=== PATIENT | male | born 1945 | race Caucasian/White ===

== ENCOUNTER → 2017-02-05 | Outpatient (CLI) | payer MEDICARE | END | disposition home or self-care (01) | LOC: PCVCIMAG 07:56 | PROVIDERS: ATTEND Internal Medicine Cardiovascular Disease | DX: E78.00 Pure hypercholesterolemia, unspecified (principal); I10 Essential (primary) hypertension; I25.10 Atherosclerotic heart disease of native coronary artery without angina pectoris; Z95.1 Presence of aortocoronary bypass graft | CPT/HCPCS: 78452; 93017; A9500; G0463 ==

== ENCOUNTER → 2017-07-30 | Outpatient (CLI) | payer MEDICARE | END | disposition home or self-care (01) | LOC: PCVCCLINIC 09:00 | PROVIDERS: ATTEND Internal Medicine Cardiovascular Disease | DX: I10 Essential (primary) hypertension (principal); E78.00 Pure hypercholesterolemia, unspecified | CPT/HCPCS: 36415; 80061 ==

== ENCOUNTER → 2017-09-16 | Outpatient (CLI) | payer MEDICARE | END | disposition home or self-care (01) | LOC: PCVCCLINIC 09:09 | DX: I25.10 Atherosclerotic heart disease of native coronary artery without angina pectoris (principal); I10 Essential (primary) hypertension; E78.00 Pure hypercholesterolemia, unspecified; I05.9 Rheumatic mitral valve disease, unspecified; R94.31 Abnormal electrocardiogram [ECG] [EKG]; R00.1 Bradycardia, unspecified; I45.10 Unspecified right bundle-branch block; Z79.82 Long term (current) use of aspirin; Z79.899 Other long term (current) drug therapy; Z87.891 Personal history of nicotine dependence | CPT/HCPCS: 93005; G0463 ==

== ENCOUNTER → 2018-01-14 | Outpatient (CLI) | payer MEDICARE | END | disposition home or self-care (01) | LOC: PCVCCLINIC 13:42 | DX: I11.0 Hypertensive heart disease with heart failure (principal); I05.9 Rheumatic mitral valve disease, unspecified; I25.10 Atherosclerotic heart disease of native coronary artery without angina pectoris; R94.31 Abnormal electrocardiogram [ECG] [EKG]; Z87.891 Personal history of nicotine dependence; Z79.82 Long term (current) use of aspirin | CPT/HCPCS: 93005; G0463 ==

== ENCOUNTER → 2018-07-21 | Outpatient (CLI) | payer MEDICARE ==
--- NOTE | 2018-07-21 10:15 | PCVCIMAG ---
APPROVED REPORT Study performed: 07/21/2018 09:47:55 EXAM: Comprehensive 2D, Doppler, and color-flow Echocardiogram Patient Location: Echo lab Room #: 3Status: routine BSA: 2.05 HR: 64 bpmBP: 132/80 mmHg Rhythm: RBBB Other Information Study Quality: Adequate Risk Factors: Cardiac Risk Factors: HTN, Hyperlipidemia Indications Aortic Valve Disease Mitral Valve Disease CAD Hypertension/HDD S/P CABG 2D Dimensions IVSd: 7.29 (7-11mm)LVOT Diam: 21.45 (18-24mm) LVDd: 60.16 mm PWd: 8.29 (7-11mm)Ascending Ao: 39.09 (22-36mm) LVDs: 40.20 (25-40mm) Left Atrium: 43.85 (27-40mm) Aortic Root: 30.79 mm LV Single Plane 4CH: 48.11 % LV Single Plane 2CH: 53.12 % Biplane EF: 49.4 % Volumes Left Atrial Volume (Systole) Single Plane 4CH: 60.70 mLSingle Plane 2CH: 66.88 mL Biplane LA Volume: 66.00 mLLA ESV Index: 32.00 mL/m2 Aortic Valve AoV Peak Justino.: 1.30 m/s AO Peak Gr.: 6.96 mmHgLVOT Max P.45 mmHg LVOT Max V: 0.60 m/s EVELYN Vmax: 1.68 cm2 AI Vmax: 5.05 m/s AI [place]: 2.41 m/s2 AI PHT: 606.98 ms Mitral Valve E/A Ratio: 0.9 MV Decel. Time: 117.11 ms MV E Max Justino.: 0.65 m/s MV A Justino.: 0.70 m/s MV PHT: 33.96 ms IVRT: 131.49 ms TDI E/Lateral E': 7.22E/Medial E': 10.83 Medial E' Justino.: 0.06 m/s Lateral E' Justino.: 0.09 m/s Pulmonary Valve PV Peak Justino.: 0.89 m/sPV Peak Gr.: 3.14 mmHg Pulmonary Vein P Vein S: 0.65 m/sP Vein A: 0.34 m/s P Vein D: 0.51 m/sP Vein A Dur.: 173.0 msec P Vein S/D Ratio: 1.27 Tricuspid Valve TR Peak Justino.: 2.58 m/s TR Peak Gr.: 26.53 mmHg TV Vmax: 0.59 m/sPA Pressure: 34.00 mmHg Left Ventricle The left ventricle is normal size. There is normal left ventricular wall thickness. The left ventricular systolic function is normal. The left ventricular ejection fraction is within the normal range. LVEF is 50-55%. Grade I - abnormal relaxation pattern. Right Ventricle The right ventricle is normal size. The right ventricular systolic function is normal. Atria The left atrium size is normal. The right atrium size is normal. Aortic Valve Aortic valve is trileaflet. The Aortic valve is moderately sclerotic with mild reduction in leaflet excursion. Mild to moderate aortic regurgitation. There is no aortic valvular stenosis. Mitral Valve The mitral valve is normal in structure. Moderate mitral regurgitation. No evidence of mitral valve stenosis. Tricuspid Valve The tricuspid valve is normal in structure. Mild tricuspid regurgitation. Pulmonic Valve The pulmonary valve is normal in structure. There is no pulmonic valvular regurgitation. Great Vessels The aortic root is normal in size. The ascending aorta is normal in size. Aortic arch is normal in caliber. IVC is normal in size and collapses >50% with inspiration. Pericardium There is no pericardial effusion. There is no pleural effusion. <Conclusion> The left ventricular systolic function is normal. The right ventricle is normal size. The left atrium size is normal. Mild to moderate aortic regurgitation. Moderate mitral regurgitation. Mild tricuspid regurgitation.
== END | disposition home or self-care (01) ==
LOC: PCVCIMAG 08:38
PROVIDERS: ATTEND Internal Medicine Cardiovascular Disease
DX: I08.3 Combined rheumatic disorders of mitral, aortic and tricuspid valves (principal); I25.10 Atherosclerotic heart disease of native coronary artery without angina pectoris; I12.9 Hypertensive chronic kidney disease with stage 1 through stage 4 chronic kidney disease, or unspecified chronic kidney disease; N18.9 Chronic kidney disease, unspecified; E78.00 Pure hypercholesterolemia, unspecified; Z79.82 Long term (current) use of aspirin; Z87.891 Personal history of nicotine dependence
CPT/HCPCS: 93005; 93306; G0463

== ENCOUNTER → 2018-08-18 | Outpatient (CLI) | payer MEDICARE | END | disposition home or self-care (01) | LOC: PCVCCLINIC 10:56 | PROVIDERS: ATTEND Internal Medicine Cardiovascular Disease | DX: I25.10 Atherosclerotic heart disease of native coronary artery without angina pectoris (principal); I10 Essential (primary) hypertension; E78.00 Pure hypercholesterolemia, unspecified; Z79.82 Long term (current) use of aspirin; Z87.891 Personal history of nicotine dependence | CPT/HCPCS: 36415; 80061 ==

== ENCOUNTER → 2019-01-20 | Outpatient (CLI) | payer MEDICARE ==
--- NOTE | 2019-01-20 11:29 | PCVCIMAG ---
APPROVED REPORT Imaging Protocol: Rest Tc-99m/Stress Tc-99m 1 day Study performed: 01/20/2019 08:53:37 Indication: Abnormal EKG, CAD Patient Location: Out-Patient Stress Nurse: Astrid Damian RN, Teodora Acevedo RN CO Tech:Rosaura Chavez [facility] Ht: 5 ft 6 in Wt: 212 lbs BSA: 2.05 m2 HR: 78 bpm BP: 170/81 mmHg BMI: 34.21 Rhythm: Sinus Rhythm, RBBB, PVC's Medical History Medical History: Hyperlipidemia, HTN, Former Smoker Medications: ASA, Atorvastatin, Lisinopril-HCT, Zetia, Metoprolol, Prilosec, Flomax Allergies: No known drug allergies Cardiac Risk Factors: Age Previous Cardiac Procedures: 2010 CABG Pretest Chest Pain Characteristics: No chest pain Exercise History: Physically active Meds Held (24 hrs): Metoprolol Resting Data Rest SPECT myocardial perfusion imaging was performed in supine position 45 minutes following the intravenous injection of 10.5 mCi of Tc-99m Sestamibi. Time of rest injection: 829 Date: 01/20/2019 Administration Route: IV Administration Site: Right Hand Exercise Stress At peak stress, the patient was injected intravenously with 33.4mCi of Tc-99m Sestamibi. Time of stress injection: 939 Date: 01/20/2019 Administration Route: IV Administration Site: Right Hand Patient continued to exercise for 1 minute(s). Gated Stress SPECT was performed 30 minutes after stress injection. The images were gated to evaluate regional wall motion and calculate left ventricular ejection fraction. Stress Test Details Stress Test: Exercise stress testing was performed using a Chente protocol. HRMax Heart Rate (APMHR): 145 bpm Resting HR: 78 bpmTarget HR (85% APMHR): 123 bpm Max HR Achieved: 142 bpm % of APMHR: 97 Recovery HR: 71 bpm HR response to stress: Normal HR response to stress BP Resting BP: 170/81 mmHg Max BP: 200/92 mmHg Recovery BP: 160/70 mmHg BP response to stress: Normal blood pressure response to stress. ECG Resting ECG: Sinus Rhythm, RBBB, PVC's Stress ECG: Sinus Tachycardia, RBBB, PVC's ST Change: Non-ischemic Arrhythmia: Multifocal PVC's, Couplets, Triplets Recovery ECG: Sinus Rhythm, RBBB, PVC's Clinical Reason for Termination: Maximal effort Stress Symptoms: Dyspnea Exercise duration: 6 min 30 sec Exercise capacity: 8.5 METs Overall Exercise Capacity for Age: Normal Scale: Active Angina Score: None Symptoms resolved during recovery. Study Quality Study: Good Artifact: Moderate Diaphragmatic artifact Study Data Post stress, the left ventricular ejection was 64%.. SSS: 2 SRS: 4 SDS: 0 TID = 0.88. Perfusion There is a medium area of moderately reduced uptake in the basal and mid segment of the inferior wall which is seen on the stress images as well as the resting images. This area thickens and moves normally and is most consistent with attenuation artifact. Wall Motion Normal left ventricular wall motion. Nuclear Conclusion ECG Findings: negative for ischemia Clinical Findings: negative for ischemia Nuclear Findings: negative for ischemia Exercise Capacity: normal Left Ventricular Function: normal This study is of low probability for inducible ischemia or prior infarct. Normal global and segmental LV systolic function. Artifact: Moderate Diaphragmatic artifact
== END | disposition home or self-care (01) ==
LOC: PCVCIMAG 08:00
PROVIDERS: ATTEND Internal Medicine Cardiovascular Disease
DX: I25.10 Atherosclerotic heart disease of native coronary artery without angina pectoris (principal); R94.31 Abnormal electrocardiogram [ECG] [EKG]; I10 Essential (primary) hypertension; E78.5 Hyperlipidemia, unspecified; I05.9 Rheumatic mitral valve disease, unspecified; Z87.891 Personal history of nicotine dependence; Z95.1 Presence of aortocoronary bypass graft
CPT/HCPCS: 78452; 93017; A9500; G0463

== ENCOUNTER → 2019-07-23 | Outpatient (CLI) | payer MEDICARE | END | disposition home or self-care (01) | LOC: PCVCCLINIC 09:00 | PROVIDERS: ATTEND Internal Medicine Cardiovascular Disease | DX: I25.10 Atherosclerotic heart disease of native coronary artery without angina pectoris (principal); I10 Essential (primary) hypertension; E78.00 Pure hypercholesterolemia, unspecified; I05.9 Rheumatic mitral valve disease, unspecified; M19.90 Unspecified osteoarthritis, unspecified site; Z79.82 Long term (current) use of aspirin; Z79.899 Other long term (current) drug therapy; Z87.891 Personal history of nicotine dependence | CPT/HCPCS: 93005; G0463 ==